=== PATIENT | female | born 1975 | race Caucasian/White ===

== ENCOUNTER 2021-08-10 15:55 | Emergency (ER) | payer BC ==
[2021-08-10 16:57] VITALS: BP 99/68; PULSE 100; RESP 18; TEMP 98
[2021-08-10] MEDS ORDERED: guaiFENesin-DM 600/30MG 1 EACH TAB.ER.12H PO STA (17:32)
[2021-08-10] MEDS ORDERED: IBUPROFEN 600 MG TAB PO STA (17:32)
--- NOTE | 2021-08-10 17:47 | ED ---
General Adult HPI - General Chief complaint: ENT Stated complaint: Sore throat,ear pain Time Seen by Provider: 08/10/21 17:04 Source: patient Mode of arrival: ambulatory Limitations: no limitations - History of Present Illness Initial comments: 46 old female patient presents to the emergency department today for evaluation of sore throat or ear pain. Patient states symptoms started earlier today. States she's having stabbing pains to both ears. States her throat is sore is painful to swallow. Denies feeling of throat swelling or difficulty swallowing. She denies any fevers or chills. States she does have mild cough. Denies sputum production. Denies any chest pain or shortness of breath. She did receive her first Pfeizer COVID-19 vaccine today. - Related Data Previous Rx's Medication Instructions Recorded Dexamethasone 6 mg PO DAILY #10 tablet 08/10/21 Nicotine 14Mg/24Hr Patch [Habitrol] 1 patch TRANSDERM DAILY 14 Days 08/10/21 patch Paliperidone [Invega] 6 mg PO HS 30 Days tablet 08/10/21 Allergies Allergy/AdvReac Type Severity Reaction Status Date / Time Quinolones Allergy Unknown Verified 08/10/21 17:39 Review of Systems ROS Statement: Those systems with pertinent positive or pertinent negative responses have been documented in the HPI. ROS Other: All systems not noted in ROS Statement are negative. Past Medical History Past Medical History: No Reported History History of Any Multi-Drug Resistant Organisms: None Reported Past Surgical History: No Surgical Hx Reported Past Psychological History: No Psychological Hx Reported Smoking Status: Current every day smoker Past Alcohol Use History: None Reported Past Drug Use History: None Reported General Exam Limitations: no limitations Course Vital Signs 08/10/21 16:52 Temperature 98 F Pulse Rate 100 Respiratory 18 Rate Blood Pressure 99/68 O2 Sat by Pulse 100 Oximetry Medical Decision Making - Medical Decision Making 46 year-old female patient presents to the emergency department today for evaluation of sore throat and ear pain. While here she did have an episode of diarrhea states there was some bright red blood present. Physical examination did reveal mild pharyngeal erythema. Normal lung sounds. She is breathing without difficulty and is in no respiratory distress. She had occult blood test was negative. She did test positive for COVID-19. We will treat with dexamethasone. She is given instructions for supportive care at home. She is instructed to follow-up the primary care physician for recheck in 1-2 days. Return parameters were discussed in detail. She verbalizes understanding and agrees with this plan. My attending is Dr. Salcedo. - Lab Data Lab Results 08/10/21 08/10/21 Range/Units 17:43 17:51 Stool Occult Blood Negative (Negative) Coronavirus (PCR) Detected A (Not Detectd) Disposition Clinical Impression: COVID-19 Disposition: HOME SELF-CARE Condition: Good Instructions (If sedation given, give patient instructions): Coronavirus Disease 2019 (COVID-19) Additional Instructions: Tips to help you feel better: -Maintain adequate fluid intake - especially water. -Rest, you are healing your body will require extra sleep. -Eat even if you do not feel like it - broth, jello, toast are fine if you cannot eat full meals. -Take tylenol and motrin alternating (if you have no allergies or have not been instructed to avoid these medications) to help with body aches and fevers. -Obtain over the counter vitamin C, zinc, and vitamin D3. -Take medications as prescribed. Follow-up with your primary care physician for recheck in 1-2 days. Return for any new, worsening, or concerning symptoms. Prescriptions: Dexamethasone 6 mg PO DAILY #10 tablet Is patient prescribed a controlled substance at d/c from ED?: No Referrals: Nonstaff,Physician [Primary Care Provider] - 1-2 days Time of Disposition: 18:25
== END 2021-08-10 18:50 | disposition home or self-care (01) ==
LOC: EC 15:55
DX: U07.1 COVID-19 (principal); F17.200 Nicotine dependence, unspecified, uncomplicated
CPT/HCPCS: 36415; 82272; 87635; 99283